=== PATIENT | female | born 1980 | race Hispanic/Latino ===

== ENCOUNTER 2017-12-20 14:41 | Emergency (ER) | payer BC ==
[2017-12-20 15:19] LABS: #Basophils 0.1 thou/uL (0.0-0.2); #Lymphocytes 3.3 thou/uL (1.20-3.40); #Monocytes 0.4 thou/uL (0.11-0.59); #Neutrophils 3.7 thou/uL (1.40-6.50); %Basophils 0.8 % (0.0-1.0); %Eosinophils 0.1 % (0.0-10.0); %Lymphocytes 43.6 % (21.0-51.0); %Monocytes 5.7 % (0.0-10.0); %Neutrophils 49.7 % (42.0-75.0); Hemoglobin 14.6 g/dL (12.0-16.0); Mean Corpuscular HGB CONC 36.2 g/dL (32.0-36.0); Mean Corpuscular Hemoglobin 34.4 pg (27.0-31.0); Mean Corpuscular Volume 95.1 fl (81.0-99.0); Platelet Count 224 thou/uL (130-400); RBC Distribution Width 11.6 % (11.5-14.5); Red Blood Cell (RBC) Count 4.25 mill/uL (4.20-5.40); White Blood Cell (WBC) Count 7.5 thou/uL (4.8-10.8)
[2017-12-20 15:24] LABS: ALT (SGPT) 41 U/L (8-55); AST (SGOT) 24 U/L (5-34); Albumin 4.7 g/dL (3.5-5.0); Alkaline Phosphatase 57 U/L (40-150); Anion Gap 15 mmol/L (10-20); BUN (Urea Nitrogen) 10 mg/dL (7.0-18.7); Bilirubin, Total 0.7 mg/dL (0.2-1.2); CK (CPK) 102 U/L (29-168); Calc. Creatinine Clearance 0 mL/min (70-130); Calcium 9.8 mg/dL (7.8-10.44); Carbon Dioxide 26 mmol/L (22-29); Chloride 102 mmol/L (98-107); Estimated GFR-MDRD 88; Globulin 3.1 g/dL (2.4-3.5); Glucose 112 mg/dL (70-105); Potassium 3.8 mmol/L (3.5-5.1); Protein, Total 7.8 g/dL (6.0-8.3); Sodium 139 mmol/L (136-145)
[2017-12-20 15:35] LABS: CKMB 1.7 ng/mL (0-6.6); Troponin I Less than 0.010 ng/mL (< 0.028)
--- NOTE | 2017-12-20 15:38 | RAD ---
CHEST 1 VIEW: HISTORY: Chest pain. COMPARISON: 05/16/16. FINDINGS: Cardiac silhouette magnified by projection. Pulmonary vasculature is unremarkable. Mediastinum is m idline. NO lobar consolidation or evidence of pneumothorax. monitor car operator leads overlie the chest . IMPRESSION: No active cardiopulmonary abnormalities are demonstrated. POS: [facility]
== END 2017-12-20 17:22 | disposition home or self-care (01) ==
LOC: ERS 14:41
DX: R09.1 Pleurisy (principal); I10 Essential (primary) hypertension; F31.9 Bipolar disorder, unspecified; F43.10 Post-traumatic stress disorder, unspecified
CPT/HCPCS: 36415; 71045; 80053; 82550; 82553; 84484; 85025; 93005

== ENCOUNTER 2018-02-27 16:03 | Emergency (ER) | payer BC ==
[2018-02-27 16:41] LABS: #Basophils 0.1 thou/uL (0.0-0.2); #Lymphocytes 2.9 thou/uL (1.20-3.40); #Monocytes 0.4 thou/uL (0.11-0.59); #Neutrophils 3.7 thou/uL (1.40-6.50); %Eosinophils 0.1 % (0.0-10.0); %Lymphocytes 40.8 % (21.0-51.0); %Monocytes 5.9 % (0.0-10.0); %Neutrophils 52.2 % (42.0-75.0); Mean Corpuscular HGB CONC 35.7 g/dL (32.0-36.0); Mean Corpuscular Hemoglobin 34.3 pg (27.0-31.0); Mean Corpuscular Volume 96.2 fL (78.0-98.0); Mean Platelet Volume 7.7 fL (7.4-10.4); Platelet Count 262 thou/uL (130-400); RBC Distribution Width 12.3 % (11.5-14.5); Red Blood Cell (RBC) Count 4.07 mill/uL (4.20-5.40)
[2018-02-27 16:53] LABS: ALT (SGPT) 39 U/L (8-55); AST (SGOT) 29 U/L (5-34); Albumin 4.7 g/dL (3.5-5.0); Alkaline Phosphatase 57 U/L (40-150); Anion Gap 12 mmol/L (10-20); BUN (Urea Nitrogen) 10 mg/dL (7.0-18.7); Bilirubin, Total 0.6 mg/dL (0.2-1.2); Calc. Creatinine Clearance 0 mL/min (70-130); Calcium 9.8 mg/dL (7.8-10.44); Carbon Dioxide 26 mmol/L (22-29); Chloride 104 mmol/L (98-107); Estimated GFR-MDRD 80; Globulin 3.1 g/dL (2.4-3.5); Glucose 105 mg/dL (70-105); Potassium 3.3 mmol/L (3.5-5.1); Protein, Total 7.8 g/dL (6.0-8.3); Sodium 139 mmol/L (136-145)
[2018-02-27 19:09] LABS: Bilirubin Negative (Negative); Blood, Urine Negative (Negative); Clarity CLEAR (Clear); Glucose, Urine (Dipstick) Negative (Negative); Leukocyte Negative (Negative); Nitrite Negative (Negative); Protein, Urine (Dipstick) Negative (Neg-Trace); Specific Gravity, Urine 1.023 (1.002-1.036); Urobilinogen 0.2 mg/dL (0.2-1.0); pH, Urine 5.5 (5.0-9.0)
--- NOTE | 2018-03-03 10:53 | EKG ---
Test Reason : Blood Pressure : / mmHG Vent. Rate : 076 BPM Atrial Rate : 076 BPM P-R Int : 134 ms QRS Dur : 086 ms QT Int : 388 ms P-R-T Axes : 031 002 014 degrees QTc Int : 436 ms Normal sinus rhythm Possible Inferior infarct , age undetermined Abnormal ECG Confirmed by LANA SANCHEZ, MICHELLE ([id number]), assistant film editor MELODIE MAN ([id number]) on 03/03/2018 10:52:57 AM Referred By: Confirmed By:MICHELLE SCHWARTZ MD
== END 2018-02-27 19:37 | disposition home or self-care (01) ==
LOC: ERS 16:03
DX: T67.5XXA Heat exhaustion, unspecified, initial encounter (principal); E87.6 Hypokalemia; F31.9 Bipolar disorder, unspecified; F43.10 Post-traumatic stress disorder, unspecified; M06.9 Rheumatoid arthritis, unspecified; I10 Essential (primary) hypertension
CPT/HCPCS: 36415; 80053; 81003; 82550; 85025; 93005; 96360

== ENCOUNTER 2018-09-11 00:17 | Emergency (ER) | payer BC, OTHER ==
[2018-09-11 00:50] LABS: #Basophils 0.1 thou/uL (0.0-0.2); #Lymphocytes 2.7 thou/uL (1.20-3.40); #Monocytes 0.4 thou/uL (0.11-0.59); #Neutrophils 3.3 thou/uL (1.40-6.50); %Eosinophils 0.5 % (0.0-10.0); %Monocytes 6.4 % (0.0-10.0); %Neutrophils 50.1 % (42.0-75.0); Hemoglobin 13.5 g/dL (12.0-16.0); Mean Corpuscular HGB CONC 35.9 g/dL (32.0-36.0); Mean Platelet Volume 7.7 fL (7.4-10.4); Platelet Count 256 thou/uL (130-400); RBC Distribution Width 11.5 % (11.5-14.5); Red Blood Cell (RBC) Count 4.09 mill/uL (4.20-5.40); White Blood Cell (WBC) Count 6.5 thou/uL (4.8-10.8)
[2018-09-11 01:10] LABS: ALT (SGPT) 36 U/L (8-55); AST (SGOT) 26 U/L (5-34); Albumin 4.4 g/dL (3.5-5.0); Alkaline Phosphatase 59 U/L (40-150); Anion Gap 12 mmol/L (10-20); BUN (Urea Nitrogen) 11 mg/dL (7.0-18.7); Bilirubin, Total 0.5 mg/dL (0.2-1.2); Calc. Creatinine Clearance 0 mL/min (70-130); Calcium 9.8 mg/dL (7.8-10.44); Carbon Dioxide 28 mmol/L (22-29); Chloride 100 mmol/L (98-107); Estimated GFR-MDRD Greater than 90; Glucose 121 mg/dL (70-105); Lipase 23 U/L (8-78); Potassium 3.1 mmol/L (3.5-5.1); Protein, Total 7.4 g/dL (6.0-8.3); Sodium 137 mmol/L (136-145)
[2018-09-11 01:11] LABS: Pregnancy Test - Urine (BHCG) Negative (Negative); Pregu Control Background? CLEAR/WHITE (CLR/WHITE); Pregu Control Bar Appear? YES (CONTROL BAR)
[2018-09-11 01:13] LABS: Bilirubin Small (Negative); Blood, Urine Negative (Negative); Glucose, Urine (Dipstick) Negative (Negative); Leukocyte Negative (Negative); Nitrite Negative (Negative); Protein, Urine (Dipstick) Negative (Neg-Trace); Urobilinogen 0.2 mg/dL (0.2-1.0)
[2018-09-11 01:16] LABS: Clarity Clear (Clear)
[2018-09-11 01:18] LABS: Specific Gravity, Urine 1.029 (1.002-1.036)
[2018-09-11 01:19] LABS: Specific Gravity 1.029 (1.002-1.036)
[2018-09-11] MEDS ORDERED: Morphine 4 MG/ML VIAL ONE (01:35)
[2018-09-11] MEDS ORDERED: Ondansetron PF 4 MG/2 ML Vial ONE (01:35)
--- NOTE | 2018-09-11 09:24 | CT ---
PRELIMINARY REPORT/[facility]/EMERGENTY AFTER-HOURS PROCEDURE CT Abdomen and Pelvis With Contrast EXAM DATE/TIME: 09/11/2018 2:05 AM CLINICAL HISTORY: 38 years old, female; 3 days of luq and left flank painabdominal pain x 2 weeks, nausea, vomiting - b lack coffee black stools - x 1 day. Tachycardia and hypertension; HX ra on immunosuppression and know n splenomegaly. TECHNIQUE: Axial computed tomography images of the abdomen and pelvis with intravenous contrast. Coronal reforma tted images were created and reviewed. COMPARISON: No relevant prior studies available. FINDINGS: Lower thorax: No acute infiltrate in either lung base. ABDOMEN: Liver: Normal. No mass. Gallbladder and bile ducts: Status post cholecystectomy. No biliary tract dilatation. Pancreas: Normal. No ductal dilation. Spleen: Mild splenomegaly (14.2 cm CC dimension). Adrenals: Normal. No mass. Kidneys and ureters: Normal. No hydronephrosis. Stomach and bowel: No generalized ileus or bowel obstruction. Appendix: Normal appendix. PELVIS: Bladder: Unremarkable as visualized. Reproductive: IUD within the uterus. Normal right ovary. 14 mm dominant ovarian follicle. ABDOMEN and PELVIS: Intraperitoneal space: Normal. No free air. No significant fluid collection. Bones/joints: No acute fracture. No dislocation. Soft tissues: Unremarkable. Vasculature: Normal. No abdominal aortic aneurysm. Lymph nodes: Normal. No enlarged lymph nodes. IMPRESSION: 1. Mild splenomegaly (14.2 cm CC dimension). 2. No generalized ileus or bowel obstruction. 3. Otherwise, no acute intra-abdominal or pelvic process. Thank you for allowing us to participate in the care of your patient. Dictated and Authenticated by: Ricky Cade MD 09/11/2018 3:00 AM Central Time ([place] & [place]) FINAL REPORT CT ABDOMEN AND PELVIS WITH CONTRAST: HISTORY: Abdominal pain. Vomiting. COMPARISON: None. FINDINGS: Findings and impression are concordant with the preliminary report. POS: [facility]
--- NOTE | 2018-09-11 09:25 | CT ---
PRELIMINARY REPORT/[facility]/EMERGENTY AFTER-HOURS PROCEDURE CT Angiography Chest With Contrast EXAM DATE/TIME: 09/11/2018 2:05 AM CLINICAL HISTORY: 38 years old, female; chest pain, 3 days of luq and left flank pain, abdominal pain x 2 weeks, nausea , vomiting - black coffee black stools - x 1 day. Tachycardia and hypertension; HX ra on immunosuppre ssion and known splenomegaly. TECHNIQUE: Axial computed tomographic angiography images of the chest with intravenous contrast using CT angiogr aphy protocol. MIP reconstructed images were created and reviewed. COMPARISON: No relevant prior studies available. FINDINGS: Pulmonary arteries: No evidence of pulmonary embolism. Aorta: Normal caliber thoracic aorta without dissection or aneurysm. Lungs: No alveolar infiltrate. Pleural space: No pleural fluid collection. No pneumothorax. Heart: No RV dysfunction. No pericardial effusion. Upper abdomen: Please refer to CT abdomen/pelvis dated 09/11/2017 for additional information Lymph nodes: No pathologically enlarged lymph nodes. Bones/joints: Unremarkable. No acute fracture. Soft tissues: Unremarkable. IMPRESSION: 1. No evidence of pulmonary embolism. 2. No alveolar infiltrate. Thank you for allowing us to participate in the care of your patient. Dictated and Authenticated by: Ricky Cade MD 09/11/2018 3:05 AM Central Time ([place] & [place]) FINAL REPORT CT ANGIOGRAM CHESTE WITH CONTRAST: HISTORY: Chest pain. Vomiting. COMPARISON: Chest radiograph from 2018. TECHNIQUE: CD angiogram chest performed after the intravenous administration of contrast. Three-dimensional ankur dering was provided. FINDINGS: The findings and impression are concordant with the preliminary report. POS: [facility]
[2018-09-11] MEDS ORDERED: ISOVUE-370 76%-LOCM 1 ML ONE (09:59)
== END 2018-09-11 04:51 | disposition home or self-care (01) ==
LOC: ERS 00:17
DX: R10.9 Unspecified abdominal pain (principal); I10 Essential (primary) hypertension; M06.9 Rheumatoid arthritis, unspecified; F43.10 Post-traumatic stress disorder, unspecified; F31.9 Bipolar disorder, unspecified; Z79.891 Long term (current) use of opiate analgesic; Z79.899 Other long term (current) drug therapy
CPT/HCPCS: 36415; 71275; 74177; 80053; 81003; 81025; 83690; 85025; 86850; 86870; 86900; 86901; 86922; 93005; 96361; 96374; 96375; J2270; J2405; Q9966

== ENCOUNTER 2022-03-14 00:10 | Emergency (ER) | payer BC ==
[2022-03-14 02:43] LABS: #Eosinphils 0.1 thou/uL (0.0-0.7); #Lymphocytes 0.6 thou/uL (1.20-3.40); #Monocytes 0.6 thou/uL (0.11-0.59); #Neutrophils 3.3 thou/uL (1.40-6.50); %Basophils 0.5 % (0.0-1.0); %Lymphocytes 12.7 % (21.0-51.0); %Monocytes 13.4 % (0.0-10.0); %Neutrophils 70.4 % (42.0-75.0); Hemoglobin 13.4 g/dL (12.0-16.0); Mean Corpuscular HGB CONC 36.1 g/dL (32.0-36.0); Mean Corpuscular Hemoglobin 33.5 pg (27.0-31.0); Mean Corpuscular Volume 92.7 fL (78.0-98.0); Mean Platelet Volume 8.1 fL (7.4-10.4); Platelet Count 206 thou/uL (130-400); RBC Distribution Width 12.2 % (11.5-14.5); White Blood Cell (WBC) Count 4.7 thou/uL (4.8-10.8)
[2022-03-14 03:02] LABS: ALT (SGPT) 24 U/L (8-55); AST (SGOT) 20 U/L (5-34); Albumin 4.4 g/dL (3.5-5.0); Alkaline Phosphatase 77 U/L (40-110); Anion Gap 16 mmol/L (10-20); BUN (Urea Nitrogen) 9 mg/dL (7.0-18.7); Bilirubin, Total 0.4 mg/dL (0.2-1.2); Calc. Creatinine Clearance 0 mL/min (70-130); Calcium 8.8 mg/dL (7.8-10.44); Carbon Dioxide 26 mmol/L (22-29); Chloride 102 mmol/L (98-107); Estimated GFR 88; Globulin 2.7 g/dL (2.4-3.5); Glucose 101 mg/dL (70-105); Potassium 3.3 mmol/L (3.5-5.1); Protein, Total 7.1 g/dL (6.0-8.3); Sodium 141 mmol/L (136-145)
[2022-03-14] MEDS ORDERED: Magnesium 2 GM/50 ML BAG (IN WATER) ONE (04:25)
[2022-03-14] MEDS ORDERED: Ketorolac Tromethamine 30 MG/ML VIAL ONE (04:25)
[2022-03-14] MEDS ORDERED: Acetaminophen 500 MG TAB ONE (04:25)
== END 2022-03-14 05:55 | disposition home or self-care (01) ==
LOC: ERS 00:10
DX: R51.9 Headache, unspecified (principal); I10 Essential (primary) hypertension; M06.9 Rheumatoid arthritis, unspecified; Z86.16 Personal history of COVID-19; Z79.899 Other long term (current) drug therapy
CPT/HCPCS: 36415; 80053; 85025; 93005; 96365; 96375; J1885; J3475

== ENCOUNTER 2024-01-03 07:52 | Outpatient (CLI) | payer BC | END 2024-01-03 07:53 | disposition home or self-care (01) | LOC: BICRAD 07:52 | PROVIDERS: ATTEND Internal Medicine | DX: R93.89 Abnormal findings on diagnostic imaging of other specified body structures (principal) | CPT/HCPCS: 71046 ==

== ENCOUNTER 2024-01-30 07:45 | Outpatient (CLI) | payer BC | END 2024-01-30 07:46 | disposition home or self-care (01) | LOC: BICMAMMO 07:45 | PROVIDERS: ATTEND Internal Medicine | DX: Z12.31 Encounter for screening mammogram for malignant neoplasm of breast (principal); N63.15 Unspecified lump in the right breast, overlapping quadrants | CPT/HCPCS: 77063; 77067 ==

== ENCOUNTER 2024-02-05 08:00 | Outpatient (CLI) | payer BC | END 2024-02-05 08:01 | disposition home or self-care (01) | LOC: BICMAMMO 08:00 | PROVIDERS: ATTEND Internal Medicine | DX: N63.15 Unspecified lump in the right breast, overlapping quadrants (principal); N63.11 Unspecified lump in the right breast, upper outer quadrant; N60.01 Solitary cyst of right breast | CPT/HCPCS: G0279 ==

== ENCOUNTER 2024-08-13 14:51 | Inpatient (IN) | payer BC ==
[2024-08-13] MEDS ORDERED: Ondansetron PF 4 MG/2 ML Vial ONE ×2 (19:08→21:32)
[2024-08-13 19:31] LABS: ALT (SGPT) 17 U/L (Less than 34); AST (SGOT) 24 U/L (11-34); Albumin 3.6 g/dL (3.1-4.5); Alkaline Phosphatase 68 U/L (40-110); Anion Gap 17 mmol/L (10-20); BUN (Urea Nitrogen) 22 mg/dL (7.0-18.7); Bilirubin, Total 0.9 mg/dL (0.3-1.2); Calc. Creatinine Clearance 0 mL/min (70-130); Calcium 8.8 mg/dL (7.8-10.44); Carbon Dioxide 15 mmol/L (22-29); Chloride 103 mmol/L (98-107); Estimated GFR 28; Globulin 3.6 g/dL (2.4-3.5); Glucose 118 mg/dL (70-105); Lipase 24 U/L (8-78); Magnesium 1.3 mg/dL (1.6-2.6); Potassium 2.6 mmol/L (3.5-5.1); Protein, Total 7.2 g/dL (6.0-8.3); Sodium 132 mmol/L (136-145)
[2024-08-13] MEDS ORDERED: Potassium Chloride 20 MEQ TAB ONE (19:49)
[2024-08-13] MEDS ORDERED: Magnesium 2 GM/50 ML BAG (IN WATER) ONE (19:50)
[2024-08-13 20:04] LABS: Hematocrit 37.5 % (36.0-47.0); Hemoglobin 13.3 g/dL (12.0-16.0); Mean Corpuscular HGB CONC 35.5 g/dL (32.0-36.0); Mean Corpuscular Hemoglobin 31.4 pg (27.0-31.0); Mean Corpuscular Volume 88.4 fL (78.0-98.0); Mean Platelet Volume 10.3 fL (7.4-10.4); Platelet Count 262 10x3/uL (130-400); RBC Distribution Width 13.6 % (11.5-14.5); Red Blood Cell (RBC) Count 4.24 mill/uL (4.20-5.40)
[2024-08-13 20:16] LABS: Band 42 % (5-11); Large Platelets 11.5 % (0-5); Lymphocytes 14 % (21-51); Monocytes 7 % (0-10); Neutrophil 31 % (42-75); Platelet Adequacy Comment Platelets Normal; Polychromasia SLIGHT = 2-3 cells HPF (0-2); Reactive Lymphocytes 6 % (0-10); Smudge Cells 3.8 %
[2024-08-13 20:29] LABS: Troponin I Less than 0.010 ng/mL (< 0.028)
[2024-08-13] MEDS ORDERED: NS 0.9% w/ 20 MEQ KCL 1,000 ML ONE (21:32)
[2024-08-13 21:49] LABS: BHCG - Serum Negative (NEGATIVE); Pregs Control Background? CLEAR/WHITE (CLR/WHITE); Pregs Control Bar Appear? YES (CONTROL BAR)
[2024-08-13 22:04] LABS: Bilirubin Small (Negative); Blood, Urine Small (Negative); Glucose, Urine (Dipstick) Negative (Negative); Ketone, Urine Trace mg/dL (Negative); Leukocyte Negative (Negative); Nitrite Negative (Negative); Protein, Urine (Dipstick) 100 mg/dL (Neg-Trace); Urobilinogen 0.2 mg/dL (Less than 2); pH, Urine 5.5 (5.0-9.0)
[2024-08-13 22:12] LABS: Pregnancy Test - Urine (BHCG) Negative (Negative); Pregu Control Background? CLEAR/WHITE (CLR/WHITE); Pregu Control Bar Appear? YES (CONTROL BAR); Specific Gravity 1.022 (1.002-1.036)
[2024-08-13 22:16] LABS: Clarity Clear (Clear)
[2024-08-13 22:19] LABS: CAUTI Indications for Culture Pelvic or flank pain; RBC/HPF 0-3 HPF (0-3); Squamous Epithelial 0-3 HPF (0-3); WBC/HPF 0-3 HPF (0-3)
[2024-08-13 22:20] LABS: Bacteria/HPF 1+ HPF (None Seen); Urine Culture Reflex No No
[2024-08-14 01:08] VITALS: BMI 39.3
[2024-08-14 01:36] LABS: Anion Gap 14 mmol/L (10-20); BUN (Urea Nitrogen) 24 mg/dL (7.0-18.7); Calc. Creatinine Clearance 59 mL/min (70-130); Calcium 8.1 mg/dL (7.8-10.44); Carbon Dioxide 12 mmol/L (22-29); Chloride 108 mmol/L (98-107); Estimated GFR 31; Glucose 99 mg/dL (70-105); Magnesium 1.6 mg/dL (1.6-2.6); Potassium 2.9 mmol/L (3.5-5.1); Sodium 131 mmol/L (136-145)
[2024-08-14] MEDS: Lactated Ringer's 1,000 ML IV SCH (01:46)
[2024-08-14] MEDS: Ondansetron PF 4 MG/2 ML Vial IVP PRN (01:46)
[2024-08-14] MEDS: Piperacillin/Tazobactam 3.375 GM in Sodium Chloride 0.9% 100 ML IVPB SCH ×2 (01:46→05:42)
[2024-08-14] MEDS: Morphine 2 MG/ML VIAL SLOW IVP PRN (02:02)
[2024-08-14 02:21] LABS: Base Excess -10.6 mEq/L (-2.0 to +3.0); Calcium, Ionized (venous) 0.86 mmol/L (1.16-1.32); Chloride (VBG) 107 mmol/L (98-106); Hematocrit-VBG 38 % (36.0-47.0); Potassium (VBG) 2.94 mmol/L (3.70-5.30); Sodium 132 mmol/L (133-146)
[2024-08-14 02:22] LABS: Actual Bicarbonate (HCO3v) 12.6 mEq/L (22-28)
[2024-08-14 04:07] LABS: #Basophils Less than 0.03 10x3/uL (0.0-0.2); #Eosinophils Less than 0.03 10x3/uL (0.0-0.7); %Basophils 0.5 % (0.0-1.0); %Eosinophils 0.3 % (0.0-10.0); %Lymphocytes 28.3 % (21.0-51.0); %Monocytes 17.1 % (0.0-10.0); Hematocrit 31.4 % (36.0-47.0); Hemoglobin 11.2 g/dL (12.0-16.0); Mean Corpuscular HGB CONC 35.7 g/dL (32.0-36.0); Mean Corpuscular Hemoglobin 31.2 pg (27.0-31.0); Mean Corpuscular Volume 87.5 fL (78.0-98.0); Mean Platelet Volume 10.5 fL (7.4-10.4); Platelet Count 196 10x3/uL (130-400); RBC Distribution Width 13.4 % (11.5-14.5); Red Blood Cell (RBC) Count 3.59 mill/uL (4.20-5.40)
[2024-08-14 04:26] LABS: Anion Gap 13 mmol/L (10-20); BUN (Urea Nitrogen) 23 mg/dL (7.0-18.7); Calc. Creatinine Clearance 65 mL/min (70-130); Carbon Dioxide 15 mmol/L (22-29); Chloride 107 mmol/L (98-107); Estimated GFR 35; Glucose 110 mg/dL (70-105); Magnesium 1.6 mg/dL (1.6-2.6); Potassium 3.3 mmol/L (3.5-5.1); Sodium 132 mmol/L (136-145)
[2024-08-14] MEDS ORDERED: clonazePAM 0.5 MG TAB PO PRN (04:41)
[2024-08-14] MEDS ORDERED: HYDROcodone/Acetaminophen 10/325 mg Tablet PO PRN (04:41)
[2024-08-14] MEDS ORDERED: Labetalol HCl 100 MG/20 ML VIAL SLOW IVP PRN ×2 (04:52→14:20)
[2024-08-14] MEDS: Potassium Chloride 20 MEQ TAB PO SCH (05:41)
[2024-08-14] MEDS: Magnesium 2 GM/50 ML(in water) 2 GM in Premix 1 BAG IVPB SCH (05:42)
[2024-08-14] MEDS: Sodium Bicarb 50 MEQ/50 ML Abboject 8.4% SYRINGE IVP SCH (05:42)
[2024-08-14] MEDS: Carvedilol 6.25 MG TAB PO SCH (08:07)
[2024-08-14] MEDS: Folic Acid 1 MG TAB PO SCH (08:07)
[2024-08-14] MEDS: DULoxetine 60 MG CAP PO SCH (08:09)
[2024-08-14] MEDS: Heparin 5,000 UNITS/ML VIAL SC SCH (08:09)
[2024-08-14] MEDS: Famotidine 20 MG TAB PO SCH (08:09)
[2024-08-14] MEDS: Sodium Bicarbonate Tab 325 MG TAB PO SCH (08:14)
[2024-08-14] MEDS ORDERED: prednisoLONE 10 MG ODT TAB PO SCH (09:00)
[2024-08-14] MEDS: Saccharomyces boulardii 250 MG CAP PO SCH (09:45)
[2024-08-14] MEDS: prednisoLONE 15 MG/5 ML UDCUP PO SCH (10:04)
[2024-08-14] MEDS: FLU (Fluarix Triv) TS24-25(6MOS UP)/PF 45 MCG/0.5 ML Syringe IM ONE (21:27)
[2024-08-15 04:35] LABS: #Basophils Less than 0.03 10x3/uL (0.0-0.2); #Eosinophils Less than 0.03 10x3/uL (0.0-0.7); %Basophils 0.3 % (0.0-1.0); %Eosinophils 0.3 % (0.0-10.0); %Lymphocytes 33.8 % (21.0-51.0); %Monocytes 17.9 % (0.0-10.0); %Neutrophils 46.4 % (42.0-75.0); Hematocrit 28.2 % (36.0-47.0); Hemoglobin 10.2 g/dL (12.0-16.0); Mean Corpuscular HGB CONC 36.2 g/dL (32.0-36.0); Mean Corpuscular Hemoglobin 31.5 pg (27.0-31.0); Mean Platelet Volume 10.3 fL (7.4-10.4); Platelet Count 194 10x3/uL (130-400); RBC Distribution Width 13.3 % (11.5-14.5); Red Blood Cell (RBC) Count 3.24 mill/uL (4.20-5.40)
[2024-08-15 05:26] LABS: Anion Gap 13 mmol/L (10-20); BUN (Urea Nitrogen) 11 mg/dL (7.0-18.7); Calc. Creatinine Clearance 144 mL/min (70-130); Calcium 8.4 mg/dL (7.8-10.44); Carbon Dioxide 19 mmol/L (22-29); Chloride 106 mmol/L (98-107); Estimated GFR 91; Glucose 119 mg/dL (70-105); Potassium 2.8 mmol/L (3.5-5.1); Sodium 135 mmol/L (136-145)
[2024-08-15] MEDS: Acetaminophen 325 MG TAB PO PRN (05:28)
[2024-08-15] MEDS ORDERED: Electrolyte Replacement Protocol 1 EACH FS SCH (08:00)
[2024-08-15] MEDS ORDERED: Electrolyte Replacement Protocol FS PRN (08:15)
[2024-08-15] MEDS: Lactated Ringer's 1,000 ML IV SCH (08:31)
[2024-08-15] MEDS: Losartan 25 MG TAB PO SCH (08:39)
[2024-08-15] MEDS: Potassium Chloride 20 MEQ TAB PO SCH ×2 (08:40→15:05)
[2024-08-15 14:44] LABS: Campy jejuni + coli by PCR Negative (Negative); STEC Shiga Toxin 1+2 POSITIVE (Negative); Salmonella spp. by PCR POSITIVE (Negative); Shigella spp + EIEC by PCR Negative (Negative)
[2024-08-15] MEDS: Magnesium 2 GM/50 ML(in water) 2 GM in Premix 1 BAG IVPB SCH (15:05)
[2024-08-16 04:05] LABS: #Basophils Less than 0.03 10x3/uL (0.0-0.2); #Eosinophils Less than 0.03 10x3/uL (0.0-0.7); %Basophils 0.3 % (0.0-1.0); %Eosinophils 0.5 % (0.0-10.0); %Lymphocytes 36.8 % (21.0-51.0); %Monocytes 15.9 % (0.0-10.0); %Neutrophils 43.9 % (42.0-75.0); Hematocrit 26.7 % (36.0-47.0); Hemoglobin 9.6 g/dL (12.0-16.0); Mean Corpuscular Hemoglobin 31.2 pg (27.0-31.0); Mean Corpuscular Volume 86.7 fL (78.0-98.0); Mean Platelet Volume 10.1 fL (7.4-10.4); Platelet Count 174 10x3/uL (130-400); RBC Distribution Width 13.3 % (11.5-14.5); Red Blood Cell (RBC) Count 3.08 mill/uL (4.20-5.40)
[2024-08-16 04:53] LABS: Anion Gap 13 mmol/L (10-20); BUN (Urea Nitrogen) 7 mg/dL (7.0-18.7); Calc. Creatinine Clearance 158 mL/min (70-130); Carbon Dioxide 19 mmol/L (22-29); Chloride 107 mmol/L (98-107); Estimated GFR 103; Glucose 133 mg/dL (70-105); Magnesium 1.8 mg/dL (1.6-2.6); Potassium 2.6 mmol/L (3.5-5.1); Sodium 136 mmol/L (136-145)
[2024-08-16] MEDS: Potassium Chloride 20 MEQ TAB PO SCH (05:16)
[2024-08-16] MEDS ORDERED: Electrolyte Replacement Protocol FS PRN (08:00)
[2024-08-16] MEDS ORDERED: Electrolyte Replacement Protocol 1 EACH FS SCH (08:00)
[2024-08-16] MEDS: Magnesium 2 GM/50 ML(in water) 2 GM in Premix 1 BAG IVPB SCH ×2 (08:34→22:40)
[2024-08-16] MEDS: HYDROcodone/Acetaminophen 10/325 mg Tablet PO PRN (08:41)
[2024-08-16] MEDS: Spironolactone 25 MG TAB PO SCH (08:42)
[2024-08-16] MEDS ORDERED: Ciprofloxacin Lactate/D5W 400 MG in Premix 1 BAG IVPB SCH ×2 (10:00→21:00)
[2024-08-16 18:45] LABS: Potassium 3.6 mmol/L (3.5-5.1)
[2024-08-16 19:10] LABS: HBsAg Index 0.33 S/CO (0-0.99); HIV (1/2) Antibody/Antigen NONREACTIVE (NonReactive); HIV 1/2 INDEX 0.06 S/CO (<1.00); Hep B Surf Ag NONREACTIVE S/CO (NonReactive); Hep C IgG Ab NONREACTIVE S/CO (NonReactive)
[2024-08-17 04:39] LABS: Anion Gap 15 mmol/L (10-20); BUN (Urea Nitrogen) 5 mg/dL (7.0-18.7); Calc. Creatinine Clearance 162 mL/min (70-130); Calcium 8.8 mg/dL (7.8-10.44); Carbon Dioxide 24 mmol/L (22-29); Chloride 104 mmol/L (98-107); Estimated GFR 107; Glucose 103 mg/dL (70-105); Magnesium 2.3 mg/dL (1.6-2.6); Potassium 3.1 mmol/L (3.5-5.1); Sodium 140 mmol/L (136-145)
[2024-08-17 04:40] LABS: Hematocrit 32.4 % (36.0-47.0); Hemoglobin 11.3 g/dL (12.0-16.0); Mean Corpuscular HGB CONC 34.9 g/dL (32.0-36.0); Mean Corpuscular Volume 88.8 fL (78.0-98.0); Mean Platelet Volume 9.8 fL (7.4-10.4); Platelet Count 269 10x3/uL (130-400); RBC Distribution Width 13.3 % (11.5-14.5); Red Blood Cell (RBC) Count 3.65 mill/uL (4.20-5.40)
[2024-08-17] MEDS: Potassium Chloride 20 MEQ TAB PO SCH ×2 (05:06→17:22)
[2024-08-17 05:36] LABS: Band 2 % (5-11); Lymphocytes 30 % (21-51); Monocytes 8 % (0-10); Myelocyte 2 % (0-0); Neutrophil 58 % (42-75); Nucleated RBC (Manual Ct) 1 % (0); Platelet Adequacy Comment Platelets Normal; RBC Morphology Within Normal Limits
[2024-08-17] MEDS: Famotidine 20 MG TAB PO SCH (09:59)
[2024-08-17 13:42] LABS: Magnesium 1.9 mg/dL (1.6-2.6); Potassium 3.1 mmol/L (3.5-5.1)
[2024-08-17] MEDS: Magnesium 2 GM/50 ML(in water) 2 GM in Premix 1 BAG IVPB SCH (17:21)
[2024-08-17] MEDS: Spironolactone 25 MG TAB PO SCH (17:35)
[2024-08-18 06:05] LABS: Anion Gap 15 mmol/L (10-20); BUN (Urea Nitrogen) 5 mg/dL (7.0-18.7); Calc. Creatinine Clearance 189 mL/min (70-130); Calcium 8.6 mg/dL (7.8-10.44); Carbon Dioxide 21 mmol/L (22-29); Chloride 106 mmol/L (98-107); Estimated GFR 112; Glucose 95 mg/dL (70-105); Magnesium 2.1 mg/dL (1.6-2.6); Potassium 2.9 mmol/L (3.5-5.1); Sodium 139 mmol/L (136-145)
[2024-08-18] MEDS: Spironolactone 25 MG TAB PO SCH (08:39)
[2024-08-18] MEDS: Potassium Chloride 20 MEQ TAB PO SCH (08:43)
[2024-08-18 20:59] LABS: Potassium 3.8 mmol/L (3.5-5.1)
[2024-08-18] MEDS: hydrALAZINE 20 MG/ML VIAL SLOW IVP SCH (22:29)
[2024-08-19 04:56] LABS: Anion Gap 15 mmol/L (10-20); BUN (Urea Nitrogen) 8 mg/dL (7.0-18.7); Calc. Creatinine Clearance 137 mL/min (70-130); Calcium 9.2 mg/dL (7.8-10.44); Carbon Dioxide 20 mmol/L (22-29); Chloride 107 mmol/L (98-107); Estimated GFR 87; Glucose 104 mg/dL (70-105); Magnesium 1.9 mg/dL (1.6-2.6); Potassium 3.3 mmol/L (3.5-5.1); Sodium 139 mmol/L (136-145)
[2024-08-19] MEDS: Potassium Chloride 20 MEQ TAB PO SCH (10:32)
[2024-08-19] MEDS: Magnesium 2 GM/50 ML(in water) 2 GM in Premix 1 BAG IVPB SCH (10:39)
[2024-08-19 10:42] VITALS: BMI 38.8
[2024-08-20 04:55] LABS: Anion Gap 13 mmol/L (10-20); BUN (Urea Nitrogen) 9 mg/dL (7.0-18.7); Calc. Creatinine Clearance 135 mL/min (70-130); Carbon Dioxide 23 mmol/L (22-29); Chloride 105 mmol/L (98-107); Estimated GFR 86; Glucose 99 mg/dL (70-105); Magnesium 2.1 mg/dL (1.6-2.6); Potassium 3.8 mmol/L (3.5-5.1); Sodium 137 mmol/L (136-145)
[2024-08-21 04:39] LABS: Anion Gap 15 mmol/L (10-20); BUN (Urea Nitrogen) 11 mg/dL (7.0-18.7); Calc. Creatinine Clearance 128 mL/min (70-130); Calcium 9.1 mg/dL (7.8-10.44); Carbon Dioxide 22 mmol/L (22-29); Chloride 106 mmol/L (98-107); Estimated GFR 80; Glucose 107 mg/dL (70-105); Magnesium 1.9 mg/dL (1.6-2.6); Potassium 3.5 mmol/L (3.5-5.1); Sodium 139 mmol/L (136-145)
[2024-08-21] MEDS: Potassium Chloride 20 MEQ TAB PO SCH (09:09)
[2024-08-21] MEDS: Magnesium 2 GM/50 ML(in water) 2 GM in Premix 1 BAG IVPB SCH (09:09)
[2024-08-21 14:09] VITALS: BP 150/96; TEMP 98.1
== END 2024-08-21 14:52 | disposition home or self-care (01) | DRG 682 ==
LOC: ERS 14:51 → 2SE 23:55
PROVIDERS: ADMIT Internal Medicine; ATTEND Internal Medicine
DX: N17.9 Acute kidney failure, unspecified (principal); A41.9 Sepsis, unspecified organism; A08.39 Other viral enteritis; E87.20 Acidosis, unspecified; D84.821 Immunodeficiency due to drugs; E87.6 Hypokalemia; E83.42 Hypomagnesemia; I10 Essential (primary) hypertension; M06.9 Rheumatoid arthritis, unspecified; F32.A Depression, unspecified; N20.0 Calculus of kidney; Z90.49 Acquired absence of other specified parts of digestive tract; Z84.1 Family history of disorders of kidney and ureter; Z82.49 Family history of ischemic heart disease and other diseases of the circulatory system; Z87.891 Personal history of nicotine dependence; Z88.8 Allergy status to other drugs, medicaments and biological substances; E86.0 Dehydration; R19.7 Diarrhea, unspecified; R50.9 Fever, unspecified
CPT/HCPCS: 36415; 74176; 80048; 80053; 81001; 81025; 82088; 82805; 83605; 83690; 83735; 84133; 84244; 84484; 84703; 85025; 86803; 87040; 87086; 87324; 87340; 87389; 87428; 87449; 87505; 93005; 93010; 96365; 96366; 96367; 96374; 96375; 96376; J0360; J1644; J1885; J2270; J2272; J2405; J2543; J3475; J3480; J7120; J7510

== ENCOUNTER 2025-01-31 08:33 | Outpatient (CLI) | payer BC | END 2025-01-31 08:34 | disposition home or self-care (01) | LOC: BICMAMMO 08:33 | PROVIDERS: ATTEND Internal Medicine | DX: Z12.31 Encounter for screening mammogram for malignant neoplasm of breast (principal) | CPT/HCPCS: 77063; 77067 ==